=== PATIENT | male | born 1955 | race Caucasian/White ===

== ENCOUNTER → 2023-07-11 10:09 | Outpatient (REF) | payer OTHER, SELFPAY | LOC: RAD 10:09 | PROVIDERS: ATTENDING PHYSICIAN Physician Assistant | DX: M79.605 Pain in left leg (principal) | CPT/HCPCS: 93971 ==

== ENCOUNTER → 2023-10-08 14:30 | Outpatient (REF) | payer OTHER, SELFPAY | LOC: RAD 14:30 | PROVIDERS: ATTENDING PHYSICIAN Internal Medicine Hematology & Oncology; FAMILY PHYSICIAN Family Medicine | DX: I82.402 Acute embolism and thrombosis of unspecified deep veins of left lower extremity (principal) | CPT/HCPCS: 93971 ==

== ENCOUNTER → 2023-10-26 15:40 | Outpatient (REF) | payer OTHER, SELFPAY | LOC: RCS 15:40 | PROVIDERS: ATTENDING PHYSICIAN Physician Assistant Medical; FAMILY PHYSICIAN Family Medicine | DX: I48.0 Paroxysmal atrial fibrillation (principal); R94.31 Abnormal electrocardiogram [ECG] [EKG] | CPT/HCPCS: 93306 ==

== ENCOUNTER → 2024-02-04 08:35 | Outpatient (REF) | payer OTHER, SELFPAY | LOC: MRI 08:35 | PROVIDERS: ATTENDING PHYSICIAN Family Medicine | DX: R22.1 Localized swelling, mass and lump, neck (principal) | CPT/HCPCS: 70543; A9575 ==

== ENCOUNTER 2024-08-05 09:13 | Emergency (ER) | payer OTHER, SELFPAY ==
[2024-08-05 09:18] VITALS: BP 152/78
[2024-08-05 09:35] VITALS: BMI 28.3
[2024-08-05 09:40] VITALS: BP 145/76
[2024-08-05 10:00] VITALS: BP 132/77
--- NOTE | 2024-08-05 10:00 | ED.GENMED ---
History of Present Illness
General
Chief Complaint: Heart Rate Problem
Time Seen by Provider: 08/05/24 09:30
History of Present Illness
History of Present Illness:
69-year-old male with history of atrial fibrillation status post ablation presenting to the ER for palpitations. Patient notes in the last 4 days he has been having a lot of 'ectopy.' He notes that he has been living with the symptoms for quite
some time, however acutely got worse in the past 4 days. 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 He tried 2 doses, however no interval improvement. Also reports the metoprolol made him dizzy. He is having a
hard time sleeping. Denies difficulty breathing. Denies chest pain. Denies fever or recent illness. Denies abdominal pain or GI symptoms. Does note that he recently started Zepbound, last dose was on Sunday and symptoms started shortly after
taking that medication. Denies additional acute medical complaints
Past History
Past History
ED Past Medical History: Arrthythmia (svt, atrial fibrillation)
ED Past Surgical History: None
Social History
Tobacco: Non-smoker
Alcohol: Daily
Drug: None
Personal: Single
Living: alone
Employment: Retired
Family History
Family History: Other (Noncontributory)
Phy Exam
Physical Exam
Physical Exam:
General: Well-appearing, no clinical signs of dehydration, nontoxic and in no acute distress
HEENT: protecting airway
Neck: appears supple
CV: Normal heart rate, regular rhythm
Resp: No accessory muscle use, no increased work of breathing, lungs clear to auscultation bilaterally
Abd: No distention
Extremities: No deformities, no swelling
Neuro: alert, no focal neurologic deficit
: deferred
Rectal: deferred
Psych: Normal affect
Skin: Intact
Course
Orders/Labs/Results
Orders:
Orders
08/05/24 09:14
Electrocardiogram (*1) Urgent
Reason for Study: Chest Pain
EKG- Treatment ONCE
08/05/24 09:49
CXR2 [CR Chest - 2 Views ] Urgent
Comment:
Reason For Exam: palpitations
08/05/24 09:50
CMP [Comprehensive Metabolic Panel] Urgent
Complete Blood Count/With Diff Urgent
Magnesium Urgent
Troponin I Urgent
Abnormal Lab Results
08/05/24
09:50
RBC 4.59 L 10^6/uL
(4.70-6.10)
MCH 32.5 H pg
(27.0-31.0)
Absolute Monos (auto) 0.7 H 10^3/uL
(0.1-0.6)
Monocytes % 11.3 H %
(1.7-9.3)
BUN 23 H mg/dl
(9-20)
08/05/24 09:50
08/05/24 09:50
Vital Signs
Initial and Last Documented VS:
Initial Vital Signs
Temp Pulse Resp BP Pulse Ox
98.1 F 60 16 152/78 99
08/05/24 09:18 08/05/24 09:18 08/05/24 09:18 08/05/24 09:18 08/05/24 09:18
Last Documented Vital Signs
Temp Pulse Resp BP Pulse Ox
98.1 F 61 22 145/76 99
08/05/24 09:18 08/05/24 09:40 08/05/24 09:40 08/05/24 09:40 08/05/24 09:35
MDM/Problems Addressed
MDM/Problems Addressed:
69-year-old male with history of A-fib status post ablation presenting for 'ectopy'. Vital signs on arrival significant for mild hypertension.
On exam patient is resting comfortably, no acute distress or discomfort. EKG on arrival is sinus rhythm, no evidence of A-fib. There are PACs which is suspected source of patient's symptoms. Patient does have some lateral T wave abnormalities,
however has been seen on previous EKG. Patient currently without chest pain with lower suspicion for ACS. Will screen with laboratory analysis to ensure no electrolyte derangements. Will obtain chest x-ray imaging. Will continue to closely
monitor and consult with cardiology regarding any additional therapies. Did advise patient to stop Zepbound given coinciding symptoms with taking the medication.
10:40 -patient's labs are unremarkable and chest x-ray without acute cardiopulmonary disease. Did discuss with cardiology, no specific recommendations at this time other than outpatient follow-up. Patient otherwise remains hemodynamically stable.
Feel stable for discharge, again with interval follow-up with cardiology. Advised discontinuation of Zepbound in case this is triggering his symptoms. Return precautions discussed and patient verbalized understanding
*EKG
Interpreted by ED Provider?: Yes
EKG Intrepretation Date: 08/05/24
EKG Intrepretation Time: 10:04
Interpretation: normal
Comparison EKG: changes noted
Heart Rate: 64
Rate: normal
Rhythm: sinus and PAC's
[place]: normal axis
Interval: normal interval
QRS Pattern: normal QRS
Ischemia: T-wave inversion (laterally, seen on 07/07/20)
*Critical Care Note
Total Time (30-74mins, 75-104mins- exclusive of procedures): Not Applicable
ED Attending Note
-
Portions of this chart may have been created with voice recognition software.� Occasional wrong word or��sound alike� substitutions may have occurred due to the inherent limitations of voice recognition software.
Discharge Plan
Departure
Prescriptions:
No Action
rivaroxaban [Xarelto] 20 MG tablet
20 mg PO QPM
wehwdnko-wow-vhijw acid-lutein 1 EACH tablet,chewable
2 ea PO DAILY
cholecalciferol (vitamin D3) [Vitamin D3] 400 UNITS tablet
400 units PO DAILY
diltiazem HCl 120 MG capsule,extended release 24hr
120 mg PO DAILY
flecainide 100 MG tablet
100 mg PO Q12 Qty: 180 5RF
Referrals:
Yahaira Banerjee MD [Family Provider] -
Interventions
Interventions:
*Risk Screen - Suicide Last Done: 08/05/24 09:41
*General Assessment Last Done: 08/05/24 09:35
*Neglect/Abuse Screening Last Done: 08/05/24 09:41
*ED- Fall Risk Assessment Last Done: 08/05/24 09:35
*ED COVID-19 Vaccine History Last Done: 08/05/24 09:35
ED- Cardiac Assessment Last Done: 08/05/24 09:35
ED- Pulmonary Assessment Last Done: 08/05/24 09:35
Discharge Date and Time
Print Language: AZERI
[2024-08-05 10:04] LABS: % Basophils 0.9 % (0-2); % Eosinophils 2.2 % (0-6); % Immature Granulocytes 0.2 % (0-0.5); % Lymphocytes 40.5 % (20.5-51.1); % Monocytes 11.3 % (1.7-9.3); % Neutrophils 44.9 % (42.2-75.2); Absolute Basophils 0.1 10^3/uL (0-0.2); Absolute Eosinophils 0.1 10^3/uL (0-0.7); Absolute Lymphocytes 2.6 10^3/uL (1.2-3.4); Absolute Monocytes 0.7 10^3/uL (0.1-0.6); Absolute Neutrophils 2.9 10^3/uL (1.4-6.5); Hematocrit 42.4 % (39.0-52.0); Hemoglobin 14.9 g/dL (13.0-18.0); Mean Corp Hgb Conc. 35.1 g/dL (33.0-37.0); Mean Corpuscular Hgb 32.5 pg (27.0-31.0); Mean Corpuscular Volume 92.4 fL (80.0-94.0); Nucleated Red Blood Cells % 0 % (-); Platelet Count 158 10^3/uL (130-400); Red Blood Cell Count 4.59 10^6/uL (4.70-6.10); Red Cell Dist. Width 13.2 % (11.5-14.5); White Blood Cell Count 6.5 10^3/uL (4.8-10.8)
[2024-08-05 10:22] LABS: ALT (SGPT) 20 U/L (0-50); AST (SGOT) 23 U/L (17-59); Albumin 4.3 g/dl (3.5-5.0); Alkaline Phosphatase 69 U/L (38-126); Blood Urea Nitrogen 23 mg/dl (9-20); Calcium 9.5 mg/dl (8.4-10.2); Carbon Dioxide 26 mmol/L (22-30); Chloride 106 mmol/L (98-107); Estimated Creatinine Clearance 60 ml/min; Glucose 90 mg/dl (70-99); Magnesium 2.3 mg/dl (1.6-2.3); Potassium 3.9 mmol/L (3.5-5.1); Sodium 140 mmol/L (135-145); Total Bilirubin 0.6 mg/dl (0.2-1.3); Total Protein 6.7 g/dl (6.3-8.2); eGFR > 60.00
[2024-08-05 10:31] LABS: Troponin I < 0.012 ng/ml
[2024-08-05 11:00] VITALS: BP 126/89
--- NOTE | 2024-08-05 11:55 | EDRN ---
Reviewed discharge instructions with patient. Verbalized understanding. Ambulated with steady gait to the lobby.
[2024-08-05 12:10] VITALS: BP 126/89
== END 2024-08-05 11:50 | disposition home or self-care (01) ==
LOC: EMR 09:13
PROVIDERS: EMERGENCY PHYSICIAN Student in an Organized Health Care Education/Training Program; FAMILY PHYSICIAN Family Medicine
DX: I48.91 Unspecified atrial fibrillation (principal); I47.10 Supraventricular tachycardia, unspecified; Z91.018 Allergy to other foods
CPT/HCPCS: 99284; 71046; 80053; 83735; 84484; 85025; 93005